=== PATIENT | female | born 1995 ===

== ENCOUNTER 2016-07-23 16:52 | Emergency (ER) | payer BC ==
[2016-07-23 18:14] VITALS: BP 132/59
--- NOTE | 2016-07-23 18:37 | UC ---
Complaint Female HPI - HPI Summary HPI Summary: complaint of itchy vaginak discharge that started 1 week ago discharge has been thick and white itchiness intermittent denies dysuria denies lesions not using condoms because she has one partner LMP 03/2015- never been seen by [facility] - History Of Current Complaint Chief Complaint: [facility] Stated Complaint: PERSONAL Time Seen by Provider: 07/23/16 18:31 Hx Obtained From: Patient - Allergies/Home Medications Allergies/Adverse Reactions: Allergies Allergy/AdvReac Type Severity Reaction Status Date / Time No Known Allergies Allergy Verified 07/23/16 18:14 Home Medications: Home Medications NK [No Home Medications Reported] 07/23/16 [History Confirmed 07/23/16] PMH/Surg Hx/FS Hx/Imm Hx Previously Healthy: Yes - Surgical History Surgical History: None - Family History Known Family History: Negative: Cardiac Disease, Hypertension, Diabetes - Social History Occupation: Student Alcohol Use: Occasionally Substance Use Type: None Smoking Status (MU): Never Smoked Tobacco Review of Systems Constitutional: Negative Skin: Negative Eyes: Negative ENT: Negative Respiratory: Negative Cardiovascular: Negative Gastrointestinal: Negative Genitourinary: Other Motor: Negative Neurovascular: Negative Musculoskeletal: Negative Neurological: Negative Psychological: Negative All Other Systems Reviewed And Are Negative: Yes Physical Exam Triage Information Reviewed: Yes Appearance: No Pain Distress, Well-Nourished Vital Signs: Initial Vital Signs Temp 98.5 F 07/23/16 18:10 Pulse 78 07/23/16 18:10 Resp 16 07/23/16 18:10 BP 132/59 07/23/16 18:10 Pulse Ox 99 07/23/16 18:10 Vital Signs Reviewed: Yes Neck: Positive: No Lymphadenopathy Respiratory: Positive: Lungs clear, Normal breath sounds, No respiratory distress Cardiovascular: Positive: RRR, No Murmur, Pulses Normal Abdomen Description: Positive: Nontender, Soft Bowel Sounds: Positive: Present Musculoskeletal: Positive: No Edema Neurological: Positive: Alert Psychological Exam: Normal Skin Exam: Normal Complaint Female Dx - Course Course Of Treatment: 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 wants to get on control. opts to try OTC miconazole and will followup with [facility] - Differential Dx/Diagnosis Differential Diagnosis/HQI/PQRI: , Sexually Transmitted Disease, Other - vaginal discharge Provider Diagnoses: vaginal discharge. amennorhea Discharge - Discharge Plan Condition: Stable Disposition: HOME Patient Education Materials: Vaginal Discharge (ED), Amenorrhea (GEN) Additional Instructions: try over the counter miconazole vaginal suppository please contact [facility] or another RAIL SPLITTER practivce for your control needs Please review your discharge instructions. If your symptoms do not improve please call your primary care provider or return to urgent care.
== END 2016-07-23 19:00 | disposition home or self-care (01) ==
LOC: UCCORT 16:52
DX: N89.8 Other specified noninflammatory disorders of vagina (principal); N91.2 Amenorrhea, unspecified
CPT/HCPCS: 99201; G0463